=== PATIENT | female | born 1995 | race Caucasian/White ===

== ENCOUNTER 2016-12-28 16:15 | Emergency (ER) | payer OTHER, BC ==
[~2016-12-28] VITALS: Ht 175.3 cm; Wt 60.0 kg
[~2016-12-28 16:15] MED LIST: IBUP800T23 PO
[2016-12-28 16:19] VITALS: BP 129/82; PULSE 82; RESP 16; TEMP 98.2; O2SAT 97
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
[2016-12-28] MEDS ORDERED: METHOCARBAMOL 500 MG TAB PO ONE (16:45)
[2016-12-28] MEDS ORDERED: IBUPROFEN 800 MG TAB PO ONE (16:45)
[2016-12-28] MEDS ORDERED: ROBA500T PO (16:56)
[2016-12-28] MEDS ORDERED: IBUP800T23 PO (16:56)
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
== END 2016-12-28 17:59 | disposition home or self-care (01) ==
LOC: NEPK 16:15
DX: S16.1XXA Strain of muscle, fascia and tendon at neck level, initial encounter (principal); R51 Headache; R42 Dizziness and giddiness; R01.1 Cardiac murmur, unspecified; V43.52XA Car driver injured in collision with other type car in traffic accident, initial encounter; Y93.89 Activity, other specified; Y92.410 Unspecified street and highway as the place of occurrence of the external cause; Y99.8 Other external cause status
CPT/HCPCS: 72050; 99283